=== PATIENT | female | born 2000 | race Asian ===

== ENCOUNTER 2023-11-28 01:34 | Emergency (ER) | payer OTHER ==
[~2023-11-28] VITALS: Ht 167.6 cm; Wt 53.1 kg
[2023-11-28 01:50] VITALS: BP_SYST 116; PULSE 72; RESP 16; TEMP 97.7; O2SAT 98
[2023-11-28 02:43] LABS: CLARITY/URINE CLEAR (CLEAR); COLOR,URINE ORANGE (YELLOW)
[2023-11-28 03:00] LABS: BACTERIA,URINE FEW /HPF (None Seen); RBC,URINE 0-3 /HPF (0-3)
[2023-11-28] MEDS ORDERED: CEPH-548 PO (03:12)
[2023-11-28] MEDS: cephALEXin 500 MG CAPSULE PO ONE (03:17)
[2023-11-28 03:25] VITALS: BP_SYST 116; PULSE 72; RESP 16; TEMP 97.7; O2SAT 98
== END 2023-11-28 03:25 | disposition home or self-care (01) ==
LOC: SED 01:34
DX: N39.0 Urinary tract infection, site not specified (principal); R35.0 Frequency of micturition; R30.9 Painful micturition, unspecified; Z88.6 Allergy status to analgesic agent; Z79.899 Other long term (current) drug therapy
CPT/HCPCS: 36415; 81000; 81001; 81015; 81025; 87086; 87491; 99283